=== PATIENT | female | born 1950 | race Caucasian/White ===

== ENCOUNTER → 2023-11-28 08:13 | Outpatient (REF) | payer MEDICARE, SELFPAY ==
[2023-11-28 12:34] LABS: % Basophils 0.9 % (0-2); % Eosinophils 2.2 % (0-6); % Immature Granulocytes 0.4 % (0-0.5); % Lymphocytes 21.7 % (20.5-51.1); % Monocytes 10.6 % (1.7-9.3); % Neutrophils 64.2 % (42.2-75.2); Absolute Basophils 0.1 10^3/uL (0-0.2); Absolute Eosinophils 0.1 10^3/uL (0-0.7); Absolute Lymphocytes 1.2 10^3/uL (1.2-3.4); Absolute Monocytes 0.6 10^3/uL (0.1-0.6); Absolute Neutrophils 3.6 10^3/uL (1.4-6.5); Hematocrit 39.7 % (37.0-47.0); Hemoglobin 12.7 g/dL (12.0-16.0); Mean Corpuscular Hgb 28.7 pg (27.0-31.0); Mean Corpuscular Volume 89.6 fL (81.0-99.0); Mean Platelet Volume 10.5 fL (7.4-10.4); Nucleated Red Blood Cells % 0 %; Platelet Count 303 10^3/uL (130-400); Red Blood Cell Count 4.43 10^6/uL (4.20-5.40); Red Cell Dist. Width 13.8 % (11.5-14.5); White Blood Cell Count 5.5 10^3/uL (4.8-10.8)
[2023-11-28 12:51] LABS: ALT (SGPT) 27 U/L (0-35); AST (SGOT) 28 U/L (14-36); Alkaline Phosphatase 72 U/L (38-126); Blood Urea Nitrogen 18 mg/dl (7-17); Calcium 9.3 mg/dl (8.4-10.2); Carbon Dioxide 28 mmol/L (22-30); Chloride 101 mmol/L (98-107); Glucose 119 mg/dl (70-99); HDL Cholesterol 63 mg/dl; LDL Cholesterol, Calculated 72 mg/dl; Potassium 4.6 mmol/L (3.5-5.1); Sodium 137 mmol/L (135-145); Total Bilirubin 0.7 mg/dl (0.2-1.3); Total Cholesterol 155 mg/dl (50-199); Total Protein 6.7 g/dl (6.3-8.2); Triglyceride 100 mg/dl (10-149); Very Low Density Lipoprotein 20 mg/dl (0-30); eGFR > 60.00
[2023-11-28 13:08] LABS: Vitamin D, 25-OH*** 42.9 ng/mL (30-80)
[2023-11-28 14:54] LABS: Glycohemoglobin (HgbA1c) 6.3 % (4.0-5.6)
== END ==
LOC: HWLAB 08:13
PROVIDERS: ATTENDING PHYSICIAN Internal Medicine Cardiovascular Disease; FAMILY PHYSICIAN Physician Assistant
DX: R73.03 Prediabetes (principal); E78.5 Hyperlipidemia, unspecified; I10 Essential (primary) hypertension; E55.9 Vitamin D deficiency, unspecified
CPT/HCPCS: 36415; 80053; 80061; 82306; 83036; 85025

== ENCOUNTER → 2024-04-09 07:52 | Outpatient (REF) | payer MEDICARE, SELFPAY | LOC: DHCBC/DCA 07:52 | PROVIDERS: ATTENDING PHYSICIAN Internal Medicine Cardiovascular Disease; FAMILY PHYSICIAN Family Medicine | DX: R00.2 Palpitations (principal); I44.7 Left bundle-branch block, unspecified; R94.31 Abnormal electrocardiogram [ECG] [EKG] | CPT/HCPCS: 78452; 93017; A9500; J2785 ==

== ENCOUNTER → 2024-04-13 08:08 | Outpatient (REF) | payer MEDICARE, SELFPAY | LOC: RCS 08:08 | PROVIDERS: ATTENDING PHYSICIAN Internal Medicine Cardiovascular Disease; FAMILY PHYSICIAN Family Medicine | DX: I10 Essential (primary) hypertension (principal); I44.7 Left bundle-branch block, unspecified | CPT/HCPCS: 93306 ==

== ENCOUNTER → 2024-05-30 08:05 | Outpatient (REF) | payer MEDICARE, SELFPAY ==
[2024-05-30 09:36] LABS: Blood Urea Nitrogen 14 mg/dl (7-17); Calcium 9.4 mg/dl (8.4-10.2); Carbon Dioxide 26 mmol/L (22-30); Chloride 104 mmol/L (98-107); Glucose 115 mg/dl (70-99); HDL Cholesterol 70 mg/dl; LDL Cholesterol, Calculated 115 mg/dl; Potassium 4.8 mmol/L (3.5-5.1); Sodium 141 mmol/L (135-145); Total Cholesterol 210 mg/dl (50-199); Triglyceride 126 mg/dl (10-149); Very Low Density Lipoprotein 25 mg/dl (0-30); eGFR > 60.00
== END ==
LOC: HWLAB 08:05
PROVIDERS: ATTENDING PHYSICIAN Internal Medicine Cardiovascular Disease; FAMILY PHYSICIAN Family Medicine
DX: I10 Essential (primary) hypertension (principal); E78.5 Hyperlipidemia, unspecified
CPT/HCPCS: 36415; 80048; 80061

== ENCOUNTER → 2024-06-13 07:47 | Outpatient (REF) | payer MEDICARE, SELFPAY | LOC: RAD 07:47 | PROVIDERS: ATTENDING PHYSICIAN Internal Medicine Cardiovascular Disease; FAMILY PHYSICIAN Family Medicine | DX: R94.39 Abnormal result of other cardiovascular function study (principal) | CPT/HCPCS: 75574; Q9967 ==

== ENCOUNTER → 2024-11-13 08:32 | Outpatient (REF) | payer MEDICARE, SELFPAY ==
[2024-11-13 12:56] LABS: HDL Cholesterol 77 mg/dl; LDL Cholesterol, Calculated 66 mg/dl; Total Cholesterol 163 mg/dl (50-199); Triglyceride 101 mg/dl (10-149); Very Low Density Lipoprotein 20 mg/dl (0-30)
== END ==
LOC: HWLAB 08:32
PROVIDERS: ATTENDING PHYSICIAN Internal Medicine Cardiovascular Disease; FAMILY PHYSICIAN Family Medicine
DX: I10 Essential (primary) hypertension (principal)
CPT/HCPCS: 36415; 80061

== ENCOUNTER → 2024-11-15 10:38 | Outpatient (REF) | payer MEDICARE, SELFPAY ==
[2024-11-15 12:56] LABS: Urine Albumin Negative (Neg - Trace); Urine Bilirubin Negative (Negative); Urine Character Clear (Clear); Urine Color Yellow; Urine Glucose Negative (Negative); Urine Ketone Negative (Negative); Urine Leukocyte 2+ (Negative); Urine Nitrite Negative (Negative); Urine Occult Blood 3+ (Negative); Urine Specific Gravity 1.015 (<1.030); Urine Urobilinogen Negative (Neg - 1+)
[2024-11-15 14:25] LABS: Urine White Cell 16-20 /HPF (0-5)
[2024-11-15 14:26] LABS: Urine Bacteria Few (Negative)
== END ==
LOC: HWLAB 10:38
PROVIDERS: ATTENDING PHYSICIAN Urology; FAMILY PHYSICIAN Family Medicine
DX: N39.0 Urinary tract infection, site not specified (principal)
CPT/HCPCS: 81003; 81015; 87077; 87086

== ENCOUNTER → 2025-04-15 11:08 | Outpatient (REF) | payer MEDICARE, SELFPAY | LOC: DHVS 11:08 | PROVIDERS: ATTENDING PHYSICIAN Internal Medicine Cardiovascular Disease; FAMILY PHYSICIAN Family Medicine | DX: I25.10 Atherosclerotic heart disease of native coronary artery without angina pectoris (principal); R09.89 Other specified symptoms and signs involving the circulatory and respiratory systems | CPT/HCPCS: 93880 ==

== ENCOUNTER → 2025-05-15 08:40 | Outpatient (REF) | payer MEDICARE, SELFPAY ==
[2025-05-15 12:54] LABS: Hematocrit 41.8 % (37.0-47.0); Hemoglobin 13.6 g/dL (12.0-16.0); Mean Corp Hgb Conc. 32.5 g/dL (33.0-37.0); Mean Corpuscular Volume 91.9 fL (81.0-99.0); Nucleated Red Blood Cells % 0 %; Platelet Count 245 10^3/uL (130-400); Red Cell Dist. Width 13.2 % (11.5-14.5)
[2025-05-15 13:36] LABS: Glycohemoglobin (HgbA1c) 6.1 % (4.0-5.6)
[2025-05-15 13:42] LABS: Urine Character Slightly Cloudy (Clear)
[2025-05-15 15:41] LABS: ALT (SGPT) 20 U/L (0-35); AST (SGOT) 20 U/L (14-36); Albumin 4.2 g/dl (3.5-5.0); Alkaline Phosphatase 76 U/L (38-126); Calcium 9.4 mg/dl (8.4-10.2); Carbon Dioxide 26 mmol/L (22-30); Chloride 104 mmol/L (98-107); Glucose 111 mg/dl (70-99); HDL Cholesterol 64 mg/dl; LDL Cholesterol, Calculated 70 mg/dl; Potassium 4.6 mmol/L (3.5-5.1); Sodium 135 mmol/L (135-145); Total Protein 6.9 g/dl (6.3-8.2); Very Low Density Lipoprotein 22 mg/dl (0-30); eGFR > 60.00
[2025-05-15 15:45] LABS: Vitamin D, 25-OH*** 37.4 ng/mL (30-80)
[2025-05-15 15:50] LABS: Blood Urea Nitrogen 17 mg/dl (7-17)
== END ==
LOC: HWLAB 08:40
PROVIDERS: ATTENDING PHYSICIAN Physician Assistant Medical; FAMILY PHYSICIAN Family Medicine
DX: I10 Essential (primary) hypertension (principal); Z00.00 Encounter for general adult medical examination without abnormal findings; R73.03 Prediabetes; E78.5 Hyperlipidemia, unspecified; E55.9 Vitamin D deficiency, unspecified
CPT/HCPCS: 36415; 80053; 80061; 81003; 82306; 83036; 84443; 85025

== ENCOUNTER 2025-05-22 10:54 | Day surgery (SDC) | payer MEDICARE, SELFPAY ==
[2025-05-22] VITALS (10 sets, daily range): BP systolic 121–169; BP diastolic 60–85
--- NOTE | 2025-05-22 14:17 | ITS.CL.PACE ---
Engine Repair Supervisor - Pacemaker Implant
Pacemaker Implant
Procedure Report:
Primary Care Doctor: Dr Jan Carcamo
Primary Supervisor Engraving: Dr Alicia Cook
Procedure Date: 05/22/2025
Name of procedure:
1. Placement of a dual-chamber pacemaker with left bundle area pacing lead for conduction system pacing
2. Subclavian venography
History:
1. Patient is a pleasant 74-year-old female with a past medical history significant for hypertension, hyperlipidemia, right bundle branch block with LAFB, obesity, right-sided breast cancer, osteoarthritis, high degree AV block with symptomatic
sinus bradycardia
2. Please refer to H&P for complete history.
Indication:
Symptomatic irreversible sinus bradycardia
Symptomatic 2: 1 and high degree AV block
Methods:
After informed consent was obtained, the patient was brought to the EP laboratory in a postabsorptive, nonsedated state. Peripheral IV access was established. Prophylactic antibiotics were administered prior to incision. Continuous ECG, blood
pressure, and pulse oximetry were initiated. Cardioversion patch electrodes were placed on the patient's chest and back. A grounding patch was applied to the skin. Sedation was administered by anesthesia services.
In order to define the extrathoracic portion of the subclavian vein and exclude significant venous obstruction or anomalous anatomy, subclavian venography was performed prior to the procedure. Using the patient's left peripheral IV, contrast was
injected and images were recorded. The left subclavian vein and SVC were found to be widely patent.
The left chest was prepared and draped in a sterile fashion. A time-out was performed. Local anesthesia was injected in the subcutaneous tissue in the infraclavicular area. An incision was made medial to the deltopectoral groove. The subcutaneous
tissue was dissected the level of the prepectoral fascia. A subcutaneous pocket was created. Under fluoroscopic guidance and with the assistance of the images from the venogram, 2 separate venipunctures were made using micropuncture and modified
Seldinger technique. These were performed in the extrathoracic portion of the subclavian vein. Guidewires were passed and two peel-away sheaths were placed, and used to advance leads into the circulation.
Fluoroscopy was used to determine likely anatomic site for left bundle branch pacing. The Medtronic C315 sheath was used to deliver the Medtronic 3830 Selectsecure pacing lead with the helix exposed just exposed from the sheath tip during continuous
monitoring when pacemapping the septum during gentle clockwise rotation to obtain a paced QRS morphology of a W pattern in lead V1. Once the suspected optimal site was identified, lead deployment was performed with several rapid rotations as paced
QRS morphology was intermittently monitored until a paced QRS complex in lead V1 demonstrated development of an R wave (qR or rSR). Unipolar pacing impedance dropped by approximately 100-200 ohms suggesting it had reached the left ventricular
subendocardial. Stable VEgm injury current is present throughout lead position and at end of case. Unipolar pacing threshold is stable at 1.0 V @ 0.4 ms. The patient had pre-existing right bundle branch block morphology at baseline and a sharp
high-frequency left bundle-branch potential was observed preceding the local ventricular electrogram. Final conduction system paced QRS complex duration is 101 ms, LVAT is 37 ms, and peak V5 -> peak V1 timing is 77 ms. The C315 sheath was slit under
fluoroscopy ensuring lead position and stability.
Next, the right atrial lead was positioned in the right atrial appendage. Adequate sensing and pacing parameters were found, and no diaphragmatic stimulation was seen with high-output pacing. Both sheaths were split, and the leads were secured to
the fascia with Ethibond ties.
The pocket was flushed with antibiotic solution and hemostasis was assured. The generator was connected to the leads and placed inside the pocket. The device was sutured to the fascia. Antibiotic envelope was used. The wound was closed with 3
running layers of absorbable suture, and steri-strips were applied. Dressing applied over steri-strips in standard fashion.
Following the procedure, the patient was taken to the recovery area in stable condition. A chest x-ray to be obtained post procedure as routine.
Lead parameters and device programming:
- RA Lead (Medtronic, Model 5076, # [id number]): Sensing 3.0 mV, Pacing threshold 0.5 V at 0.4 ms, Imp 570 ohm
- RV Lead (Medtronic, Model 3830, # [id number]): Sensing 10.0 mV, Pacing threshold 0.75 V at 0.4 ms, Imp 820 ohm (bipolar)
- Device: Medtronic, Model W1 DR 01 pacemaker (# [id number]), programmed DDDR, mode switch on, lower rate 60, upper tracking rate 130 ppm
Conclusions:
1. Successful placement of a dual-chamber pacemaker with conduction system pacing (LBBAP)
2. Subclavian venography
Recommendations:
- Admit
- Chest x-ray tonight, [facility] in AM.
- IV antibiotics while the patient is admitted.
- OK to resume home medications as indicated
- Pressure dressing to be removed in AM, aquacell to remain until wound check
- Follow-up will be arranged in the office in 7-10 days post-discharge for incision check
Lloyd Bullard DO, FACC, [facility]
Clinical Cardiac Transplant Surgeon
cc: Dr Alicia Cook
--- NOTE | 2025-05-22 18:05 | PTCARENOTE ---
Received pt from EPS lab s/p PPM LCW pressure dressing site c/d/i left arm immobilizer in place. V Paced on the monitor vss. EKG done. Call brown within reach.
--- NOTE | 2025-05-22 21:21 | PTCARENOTE ---
Received pt at change of shift resting in bed. V-paced on tele, HR 60's-70's. pt denies any CP or SOB. PPM site w/ pressure dressing, C/D/I. No bleeding or hematoma noted at this time. Left arm immobilizer on. pt educated on activity restrictions,
verbalizes understanding. Encouraged pt to call RN with any questions/concerns. Call brown within reach.
[2025-05-22] MEDS: ANCEF 5 IV (22:37)
[2025-05-23 03:50] VITALS: BMI 34.3
[2025-05-23 03:55] VITALS: BP 132/76
[2025-05-23 04:24] LABS: Hematocrit 37.3 % (37.0-47.0); Hemoglobin 12.4 g/dL (12.0-16.0); Mean Corp Hgb Conc. 33.2 g/dL (33.0-37.0); Mean Corpuscular Volume 88.6 fL (81.0-99.0); Platelet Count 206 10^3/uL (130-400); Red Cell Dist. Width 13.4 % (11.5-14.5)
[2025-05-23 04:36] LABS: Blood Urea Nitrogen 15 mg/dl (7-17); Calcium 8.7 mg/dl (8.4-10.2); Carbon Dioxide 25 mmol/L (22-30); Chloride 108 mmol/L (98-107); Estimated Creatinine Clearance 65 ml/min; Glucose 115 mg/dl (70-99); Magnesium 2.2 mg/dl (1.6-2.3); Potassium 4.5 mmol/L (3.5-5.1); Sodium 138 mmol/L (135-145); eGFR > 60.00
[2025-05-23] MEDS: ANCEF 5 IV (06:11)
[2025-05-23 07:21] VITALS: BP 132/68
--- NOTE | 2025-05-23 07:28 | W.PN.CARDCBS ---
Addendum entered and electronically signed by Dk Westfall MD 05/23/25 10:10:
Patient seen and examined
Agree with STOKER ERECTOR AND SERVICER note assessment
Agree with STOKER ERECTOR AND SERVICER plan
Exam:
Left deltopectoral groove incision clean dry and intact without hematoma
Chest x-ray personally reviewed with stable lead positions in the right atrium and the conduction system septum
On telemetry atrial sensing and ventricular pacing
Oriented x 3
Nonfocal neurologically
Cor regular
Impression:
Symptomatic irreversible sinus bradycardia
Symptomatic 2: 1 and high degree AV block
post DC PPM with left bundle area pacing lead for conduction system pacing 05/22/25
HTN
Hyperlipidemia
LBBB
Breast cancer
Osteoarthritis
Plan:
Chest x-ray reviewed without pneumothorax
Instructed to limit the use of naproxen for the first week
Tylenol PRN for pain
Activity restrictions reviewed
inc check 1 week DCA
home today
Original Note:
Today's Communication / Plan
-
post PPM, stable for d/c home
Impression / Plan
-
Primary Care Doctor: Dr Jan Carcamo
Primary Automatic Folder Seamer: Dr Alicia Cook
Patient is a pleasant 74-year-old female with a past medical history significant for hypertension, hyperlipidemia, right bundle branch block with LAFB, obesity, right-sided breast cancer, osteoarthritis, high degree AV block with symptomatic sinus
bradycardia
Impression:
Symptomatic irreversible sinus bradycardia
Symptomatic 2: 1 and high degree AV block
post DC PPM with left bundle area pacing lead for conduction system pacing 05/22/25
HTN
Hyperlipidemia
LBBB
Breast cancer
Osteoarthritis
Plan:
post device site stable
tele AsVpaced appropriately
CXR no PTX, leads in good position
Instructed to limit the use of naproxen for the first week
Tylenol PRN for pain
Activity restrictions reviewed
inc check 1 week DCA
home today
Progress Note - Automatic Folder Seamer
Subjective
Date of Service: May 23, 2025
denies cp, sob, mild inc pain
Objective
Labs:
05/23/25 04:05
05/23/25 04:05
Labs
Hgb 12.4 g/dL (12.0-16.0) 05/23/25 04:05
Hct 37.3 % (37.0-47.0) 05/23/25 04:05
Plt Count 206 10^3/uL (130-400) 05/23/25 04:05
Sodium 138 mmol/L (135-145) 05/23/25 04:05
Potassium 4.5 mmol/L (3.5-5.1) 05/23/25 04:05
BUN 15 mg/dl (7-17) 05/23/25 04:05
Creatinine 0.8 mg/dL (0.6-1.0) 05/23/25 04:05
Glucose 115 mg/dl (70-99) H 05/23/25 04:05
Vital Signs and I&O:
Vital Signs
Temp Pulse Resp BP Pulse Ox
97.4 F 62 20 132/76 96
05/23/25 07:22 05/23/25 06:45 05/23/25 07:22 05/23/25 03:55 05/23/25 07:22
Vital Signs
Temp Pulse Resp BP Pulse Ox
97.4 F 62 20 132/76 96
05/23/25 07:22 05/23/25 06:45 05/23/25 07:22 05/23/25 03:55 05/23/25 07:22
Intake & Output
05/21/25 05/22/25 05/23/25 05/24/25
06:59 06:59 06:59 06:59
Intake Total 960 / 960
Balance 960 / 960
Physical Exam
Physical Exam
NAD< AOX3
S1, S2, RRR, no murmur
CTAB, non labored
SNTND bsx4
L CW dressing c/d/i, no HT, pressure dressing removed
[2025-05-23] MEDS: ASPIR LOW (ENTERIC COATED) 81 MG PO (07:57)
[2025-05-23] MEDS: ZESTRIL 5 MG PO (07:57)
[2025-05-23] MEDS: LIPITOR 20 MG PO (07:57)
--- NOTE | 2025-05-23 10:15 | W.DS.TRANS ---
DC Summary - Parts Cataloguer
-
Discharge Instructions:
Discharge Diagnosis/Procedures Pacemaker implant
Diet Low Cholesterol
Driving Restrictions No driving for 1 week
Bathing Restrictions OK to Shower
Instructions:
Stand-Alone Forms: DC Inst - Implanted Device
Changes to Home Medications: No
Discharge Medications:
DC Medications w/original date entered in [employer]
aspirin 81 mg tablet,delayed release 81 mg PO DAILY 05/22/25
atorvastatin 20 mg tablet 20 mg PO DAILY 05/22/25
cholecalciferol (vitamin D3) 25 mcg (1,000 unit) capsule (Vitamin D3) 25 mcg PO DAILY 05/22/25
lisinopril 5 mg tablet 5 mg PO DAILY 05/22/25
multivitamin with minerals-folic acid 80 mcg chewable tablet (Centrum Adult 50 Plus) 1 tab PO DAILY 05/22/25
naproxen sodium 220 mg tablet (Aleve) 440 mg PO BID PRN pain 05/22/25
Home Medication Changes
Pending Results: No
[2025-05-23 11:15] VITALS: BP 128/67
--- NOTE | 2025-05-23 12:31 | PTCARENOTE ---
Pt received this am with no c/o of any pain or discomfort. Left arm immobilizer intact. Left chest pressure dressing dry and intact this am and was removed by FRETTED INSTRUMENT REPAIRER. Pt discharged to home with her son. Discharge instructions given and reviewed with
good understanding and all questions answered.
--- NOTE | 2025-05-23 12:33 | CM ---
Chart reviewed. Patient is independent of ADLS, lives alone in a [address], 1 [address]ER[address], 0 DME patient has a stairglide. Plan is for the patient to return home.
== END 2025-05-23 11:38 | disposition home or self-care (01) ==
LOC: CATH 10:54
PROVIDERS: Nurse Practitioner Adult Health; ATTENDING PHYSICIAN Internal Medicine Cardiovascular Disease; FAMILY PHYSICIAN Family Medicine; OTHER PHYSICIAN Internal Medicine Cardiovascular Disease
DX: I49.5 Sick sinus syndrome (principal); I44.1 Atrioventricular block, second degree; I10 Essential (primary) hypertension; E78.5 Hyperlipidemia, unspecified; E66.9 Obesity, unspecified; M19.90 Unspecified osteoarthritis, unspecified site; Z85.3 Personal history of malignant neoplasm of breast; I45.2 Bifascicular block
CPT/HCPCS: 33208; 71045; 80048; 83735; 85027; 93005; C1769; C1785; C1887; C1898